=== PATIENT | female | born 1945 | race Caucasian/White ===

== ENCOUNTER 2018-01-21 13:58 | Emergency (ER) | payer MEDICARE, BC ==
[~2018-01-21] VITALS: Ht 152.4 cm; Wt 54.4 kg
--- NOTE | 2018-01-21 14:12 | NUR ---
AAOX3 CAME TO ER C/O LT 4TH INDEX FINGER POSSIBLE INJURY X 1130 AM AFTER TRYING TO PROTECT HER FROM FALLING. RR IS EVEN AND UNLABORED WITH NAD NOTED. SKIN IS WARM AND DRY. AWAITING MD FOR EVAL .
[2018-01-21 15:21] VITALS: BP 155/78
== END 2018-01-21 15:32 | disposition home or self-care (01) ==
LOC: ER 14:02
DX: M20.012 Mallet finger of left finger(s) (principal); I10 Essential (primary) hypertension
CPT/HCPCS: 29130; 73140; 99284; A4606; Z7610